=== PATIENT | female | born 2000 | race Caucasian/White ===

== ENCOUNTER → 2024-04-22 11:11 | Outpatient (REF) | payer BC, SELFPAY | LOC: ANHLAB 11:11 | PROVIDERS: Visit Provider Plastic Surgery | DX: D22.39 Melanocytic nevi of other parts of face (principal) | CPT/HCPCS: 88305 ==

== ENCOUNTER → 2024-05-31 08:10 | Outpatient (REF) | payer SELFPAY | LOC: ANHLAB 08:10 | PROVIDERS: PCP Nurse Practitioner Family; Visit Provider Plastic Surgery | DX: D22.39 Melanocytic nevi of other parts of face (principal) | CPT/HCPCS: 88305 ==

== ENCOUNTER → 2024-07-09 13:20 | Outpatient (REF) | payer BC, SELFPAY | LOC: ANHLAB 13:20 | PROVIDERS: PCP Nurse Practitioner Family; Visit Provider Plastic Surgery | DX: D22.39 Melanocytic nevi of other parts of face (principal) | CPT/HCPCS: 88305 ==

== ENCOUNTER 2024-07-09 15:42 | Emergency (ER) | payer OTHER, BC, SELFPAY ==
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
[2024-07-09 15:50] VITALS: BP 113/67; PULSE 76; RESP 16; TEMP 36.6; O2SAT 99
== END 2024-07-09 17:10 | disposition home or self-care (01) ==
PROVIDERS: Emergency Provider Nurse Practitioner Family
DX: S70.211A Abrasion, right hip, initial encounter (principal); S50.311A Abrasion of right elbow, initial encounter; S80.211A Abrasion, right knee, initial encounter; V23.59XA Other motorcycle passenger injured in collision with car, pick-up truck or van in traffic accident, initial encounter; S00.03XA Contusion of scalp, initial encounter; M25.551 Pain in right hip
CPT/HCPCS: 73502; 99213; G0463

== ENCOUNTER 2024-08-04 16:04 | Emergency (ER) | payer SELFPAY ==
--- NOTE | 2024-08-04 16:10 | ED.DENTAL ---
HPI - Dental/Oral General Chief complaint: Dental/Oral Stated complaint: jaw pain and stiffness Time Seen by Provider: 08/04/24 16:10 Source: patient Mode of arrival: ambulatory Limitations: no limitations History of Present Illness HPI Narrative: Ravi is a 24-year-old female patient presenting to the clinic today with complaints of right-sided gel pain and stiffness. Symptoms started this morning. States she has tried to stretch and pop her jaw without relief. Denies any injury. No concern for tetanus Related Data Allergies Allergy/AdvReac Type Severity Reaction Status Date / Time sertraline Allergy Unknown Verified 08/04/24 16:21 Review of Systems Review of Systems: Pertinent positives per HPI. Patient denies any fever, chills, rash, headache, visual changes, dizziness, cough, runny nose, sore throat, shortness of breath, chest pain, palpitations, nausea, vomiting, diarrhea, constipation, abdominal pain, or any urinary issues. PMF[facility] Past Medical History Medical History Anemia Anxiety IBS (irritable bowel syndrome) Surgical History Surgical History No history of previous surgery Family History Family History Mother Anxiety and depression Sibling Anxiety and depression Grandparent Anxiety and depression Alcoholism Social History Social History Social History: Pt declined to complete SDOH 05/09/25 Smoking status: Never smoker Alcohol intake: never Substance use: never Do You Feel Safe in your Home?: Yes Lack of Transportation: No Lack of Food: Never True Current Housing: I Have Housing Concerned About Future Housing: No Difficulty Paying Gas/Electric Bills: No Difficulty Paying for Meds: No Currently Unemployed: No Education: High School Diploma/GED Difficulty w/ Childcare or Family Care: No Living arrangements: with family Occupation/Education: occupation Additional occupation/education comments: Self-employed Spiritual care concerns: No Comments At the time of my signature, I reviewed and agree with the nursing past medical, surgical, social, and family history. There is no relevant family history pertinent to the patient complaint. Exam Narrative: General: Well-developed, well nourished, in no apparent distress Head: Normocephalic, atraumatic Eyes: Pupils equally round and reactive to light bilaterally, EOM intact, sclera and conjunctive clear, no discharge, lids normal Ears: TMs intact and clear, ear canals clear, no drainage, grossly hearing normal. Nose: Nares patent, no discharge, no inflammation, no sinus tenderness. Mouth: Oropharynx without lesions or masses, good dentition, MMM. Tender to palpation over the right TMJ joint, no crepitus palpable with opening and closing of the jaw however patient does have limited range of motion to the jaw with significant pain. Neck: Supple, trachea midline, no enlargement of anterior or posterior cervical nodes, no thyroid masses or goiter palpable. Cardio: Regular rate and rhythm, s1 and s2 normal, no murmur appreciated. Resp: Clear to auscultation bilaterally anteriorly and posteriorly, no rhonchi, rales, wheezing or rubs Course Course Emergency Course: Portions of this record may have been created with voice recognition software. Level of Care: Express Care Visit Vital Signs Vital signs: Vital signs reviewed MDM - Dental/Oral MDM Narrative Medical decision making narrative: At the time of visit patient is resting comfortably on the exam table. Patient appears to be nontoxic. Plan: I suspect patient has TMJ dysfunction. Prescription for naproxen was sent to the pharmacy. Supportive measures were discussed with the patient and they voiced understanding discharge instructions and agrees to treatment plan. Return precautions reviewed Discharge Plan Discharge Clinical Impression: TMJ dysfunction Patient Disposition: Home, Self-Care Condition: Stable Instructions: Antibiotic Form, Temporomandibular Disorder (ED) Additional Instructions: Take naproxen as prescribed Alternate heat and ice to the affected area to help alleviate pain and swelling Massage the area as discussed May wear a mouth guard at night if you are clenching or grinding your teeth Eat soft foods, avoid chewing gum, and avoid wide yawning May follow-up with dentist Complete TMJ exercises at least 3 times per day May need PT referral from your primary care doctor if symptoms persist Follow-up with your primary care doctor in 1 week if symptoms persist Go to the emergency room if symptoms worsen Prescriptions: New naproxen 500 mg tablet 500 mg PO BID PRN (Reason: pain) 7 Days Qty: 14 0RF No Action paroxetine HCl [Paxil] 20 mg tablet 20 mg PO DAILY Qty: 90 1RF Follow-up/Referrals: UNKNOWN,DOCTOR [Primary Care Provider] - Time of Disposition: 16:31 Quality NIHSS Nursing Documentation ED NIHSS nursing documentation: reviewed/agree
[2024-08-04 16:22] VITALS: BP 103/63; PULSE 90; RESP 16; TEMP 36.6; O2SAT 99
== END 2024-08-04 16:35 | disposition home or self-care (01) ==
PROVIDERS: Emergency Provider Nurse Practitioner Family
DX: M26.601 Right temporomandibular joint disorder, unspecified (principal)
CPT/HCPCS: 99213; G0463